=== PATIENT | male | born 1940 | race Caucasian/White ===

== ENCOUNTER 2016-09-07 14:02 | Emergency (ER) | payer OTHER ==
[~2016-09-07 14:02] MED LIST: ACETAMINOPHEN325 MG PO; ANTIVERT25 MG PO; ASPIRIN CHEWABL81 MG PO; BACLOFEN 10MG T10 MG PO; CERTAGEN1 EACH PO; COLACE100 M1 PO; DULCOLAX5 MG PO; ELAVIL25 MG PO; FEOSOL325 MG PO; FOLIC ACID1 MG PO; GLUCOPHAGE500 MG PO; GLUCOTROL10 MG PO; HUMULIN R100 UNIT/1 SQ; LACTINEX1 EACH PO; LEVAQUIN500 MG PO; LIPITOR40 MG PO; LOPID600 MG PO; NEURONTIN400 MG PO; OXY-IR 5MG5 MG PO; PRILOSEC20 MG PO; PRINIVIL20 MG PO; SENOKOT-S TABL1 EACH PO; VITAMIN B-121000 MC1 PO; XARELTO10 MG PO
[2016-09-07 15:24] LABS: BASOPHIL 0.1 % (0-2); EOSINOPHIL 0.7 % (0-7); HGB 15.6 g/dl (13.2-18.0); MCHC 35.5 g/dL (32.0-36.0); MCV 90.3 fL (78.0-100.0); MONOCYTE 7.5 % (0-12); MPV 9.1 fL (6.0-9.5); NEUTROPHIL 84.7 % (41-80); PLT 167 K/uL (150-400); RBC 4.87 M/uL (4.70-6.00); RDW 14.5 % (11.5-14.0); WBC 15.1 K/uL (4.0-10.5)
[2016-09-07 15:32] LABS: ALBUMIN 3.7 g/dL (3.4-4.8); BILIRUBIN - TOTAL 2.1 mg/dL (0.1-1.0); CREATININE 0.9 mg/dL (0.7-1.2); GLOBULIN (CALCULATION) 3.6 g/dL (2.2-4.2); POTASSIUM 3.9 mmol/L (3.5-5.1); TOTAL PROTEIN 7.3 g/dL (6.4-8.3)
[2016-09-07 17:24] LABS: BILIRUBIN NEGATIVE (NEGATIVE); BLOOD 2+ Ery/uL (NEGATIVE); CLARITY CLEAR (CLEAR); COLOR YELLOW (YELLOW); GLUCOSE (U) NORMAL (NORMAL); KETONE (U) NEGATIVE (NEGATIVE); LEUKOCYTES NEGATIVE Leu/uL (NEGATIVE); NITRITE NEGATIVE (NEGATIVE); PROTEIN 1+ mg/dL (NEGATIVE); SPECIFIC GRAVITY 1.025 (1.001-1.030); pH 5.5 (5.0-9.0)
[2016-09-07 17:26] LABS: SQUAMOUS EPITHELIAL CELLS RARE; URINARY RBC RARE; URINARY WBC RARE
[2016-09-07 17:33] LABS: AMPHETAMINES NEGATIVE (NEGATIVE); BARBITURATES NEGATIVE (NEGATIVE); BENZODIAZEPINES NEGATIVE (NEGATIVE); COCAINE NEGATIVE (NEGATIVE); MARIJUANA (THC) NEGATIVE (NEGATIVE); METHADONE NEGATIVE (NEGATIVE); TRICYCLIC ANTIDEPRESSANT NEGATIVE (NEGATIVE)
[2016-09-07 18:45] LABS: LACTIC ACID 4.1 mmol/L (0.5-2.2)
== END 2016-09-07 23:00 | disposition other institution (70) ==
LOC: FER 14:02
PROVIDERS: Nurse Practitioner Family
DX: L03.116 Cellulitis of left lower limb (principal); L97.509 Non-pressure chronic ulcer of other part of unspecified foot with unspecified severity; R45.850 Homicidal ideations; R45.851 Suicidal ideations; E10.40 Type 1 diabetes mellitus with diabetic neuropathy, unspecified; Z79.4 Long term (current) use of insulin; I10 Essential (primary) hypertension; R42 Dizziness and giddiness; Z90.49 Acquired absence of other specified parts of digestive tract; M19.90 Unspecified osteoarthritis, unspecified site
CPT/HCPCS: 36415; 73630; 80053; 80305; 81001; 83605; 85025; 87040; 87070; 87077; 87205; J2060